=== PATIENT | male | born 1970 | race Caucasian/White ===

== ENCOUNTER 2022-02-14 20:21 | Inpatient (IN) | payer OTHER ==
[~2022-02-14] VITALS: Ht 175.3 cm; Wt 80.7 kg
--- NOTE | 2022-02-14 21:40 | NUR ---
ERIC C/O RIGHT LEG WOUND, CUT ON Friday WAS ADMITTED AT [facility] . PT A/OX4. TOLERATING R/A WELL WITH NO RESP DISRESS. SAFETY MEASURES IN PLACE.
[2022-02-14] MEDS ORDERED: VANCOMYCIN 1 GM in IV D5W 250 ML IV ONE (23:00)
[2022-02-14] MEDS ORDERED: VANCOMYCIN 1 GM VIAL ONE (23:10)
--- NOTE | 2022-02-14 23:11 | NUR ---
RAC #20G S/K BLOOD AND COVID ANTIGEN SWAB COLLECTED AND SENT TO LAB
--- NOTE | 2022-02-14 23:20 | NUR ---
JAIR SENT TO LAB
[2022-02-14 23:24] LABS: BASOPHILS % (AUTO) 0.1 % (0.0-2.0); EOSINOPHILS % (AUTO) 2.2 % (0.0-6.0); HEMATOCRIT 42 % (39-51); HEMOGLOBIN 14.1 g/dL (13.5-17.5); LYMPHOCYTES # (AUTO) 0.8 K/uL (0.8-4.8); LYMPHOCYTES % (AUTO) 9.7 % (20.0-44.0); MEAN CORPUSCULAR HGB CONC 33 g/dl (31.0-36.0); MEAN CORPUSCULAR VOLUME 88 fL (80-96); MONOCYTES # (AUTO) 0.7 K/uL (0.1-1.30); MONOCYTES % (AUTO) 9.2 % (2.0-12.0); NEUTROPHILS # (AUTO) 6.3 K/uL (1.8-8.9); NEUTROPHILS % (AUTO) 78.8 % (43.0-81.0); PLATELET COUNT (AUTO) 290 K/uL (150-450); RED BLOOD CELL COUNT(AUTO) 4.82 MIL/uL (4.5-6.0); WHITE BLOOD COUNT (AUTO) 7.9 K/uL (4.3-11.0)
[2022-02-14 23:34] LABS: CALCIUM, SERUM 8.8 mg/dL (8.5-10.1); POTASSIUM 3.6 mmol/L (3.5-5.1)
[2022-02-14 23:39] LABS: ALBUMIN 2.9 g/dL (3.4-5.0); BILIRUBIN,DIRECT 0.1 mg/dL (0.0-0.2); BILIRUBIN,TOTAL 0.5 mg/dL (0.2-1.0); TOTAL PROTEIN, SERUM 7.8 g/dL (6.4-8.2)
--- NOTE | 2022-02-15 02:43 | NUR ---
PT TAKEN TO CT VIA [facility]
[2022-02-15] MEDS ORDERED: Z GUARD REMEDY 4 OZ OINT TP PRN (03:00)
[2022-02-15] MEDS ORDERED: ACETAMINOPHEN 325 MG TABLET PO PRN (03:00)
[2022-02-15] MEDS ORDERED: MAGNESIUM HYDROXIDE 30 ML UDC PO PRN (03:00)
[2022-02-15] MEDS ORDERED: ONDANSETRON HCL/PF 4 MG/2 ML VIAL IVP PRN (03:00)
[2022-02-15] MEDS ORDERED: ZOLPIDEM TARTRATE 5 MG TABLET PO PRN (03:00)
[2022-02-15] MEDS ORDERED: MAG HYDROX/AL HYDROX/SIMETH 30 ML UDC PO PRN (03:00)
--- NOTE | 2022-02-15 03:00 | NUR ---
PT RETURNED TO ER BED [address]
--- NOTE | 2022-02-15 03:00 | NUR ---
room 327-1
--- NOTE | 2022-02-15 03:28 | NUR ---
REPORT GIVEN TO NADER He RN FOR TATY
[2022-02-15 04:00] VITALS: BP 112/68
--- NOTE | 2022-02-15 04:08 | NUR ---
PT TRANSFERRED TO [facility] VIA HOSPITAL PROTOCOL. ALL BELONGINGS WITH PT. VSS
--- NOTE | 2022-02-15 04:10 | NUR ---
MS CHIEF OF POLICE NOTE ADMITTED PATIENT FROM ER, BROUGHT BY NURSE COHEN VIA GURNEY WITH C/C RLE WOUND AND WITH INITIAL DX. OF FOREIGN BODY IN SOFT TISSUE AND CELLULITIS. ALERT AND ORIENTED X4. ABLE TO COMMUNICATE NEEDS WITH THE STAFFS. AFEBRILE AND NOT IN ANY FORM OF ACUTE DISTRESS. NO SOB/WHEEZING NOTED. NO C/O PAIN OR DISCOMFORT AT THIS TIME. LUNG SOUNDS CLEAR ON AUSCULTATION. BOWEL SOUND PRESENT IN ALL QUADRANTS. WITH IV ACCESS ON L ANTECUBITAL 20G SL. DIRECTED TO 327-1 AND TRANSFERRED TO BED. INITIAL SKIN ASSESSMENT DONE AND NOTED WITH 3 LACERATION ON RIGHT LOWER LEG (MEASURING 3CM X 1CM, 2CM X 0.5CM AND 2.5CM X 0.5CM). AREA CLEANSED AND COVERED WITH DRY DRESSING AND WOUND CONSULT WAS PLACED FOR FURTHER EVALUATION AND MANAGEMENT. ORIENTED TO ROOM. SAFETY MEASURES IN PLACE. KEPT BED IN LOCKED AND IN LOW POSITION TO REDUCE INJURY. SIDE RAILS UP X2. ADVISED TO USE THE CALL LIGHT WHEN IN NEED OF ASSISTANCE.
[2022-02-15 05:16] VITALS: BP 112/68
--- NOTE | 2022-02-15 06:52 | NUR ---
MS RN CLOSING NOTE PATIENT IN BED, WITH HOB ELEVATED, ALERT AND ORIENTED X4. ABLE TO MAKE NEEDS KNOWN. AFEBRILE AND NOT IN ANY FORM OF ACUTE DISTRESS. BREATHING EVEN AND NON LABORED. NO C/O PAIN OR DISCOMFORT AT THIS TIME. WITH IV ACCESS ON LEFT AC 20G SL. SAFETY MEASURES IN PLACE. KEPT BED IN LOCKED AND IN LOW POSITION TO REDUCE INJURY. SIDE RAILS UP X2. ADVISED TO USE THE CALL LIGHT WHEN IN NEED OF ASSISTANCE. ALL NURSING NEEDS ATTENDED.
--- NOTE | 2022-02-15 08:00 | NUR ---
MS RN OPENING NOTE PATIENT LAYING IN BED, A/O X 4, ABLE TO MAKE NEEDS KNOWN, TOLERATING WELL ON ROOM AIR WITH NO S/S RESPIRATORY DISTRESS. NO COMPLAINTS OF PAIN OR DISCOMFORT. L AC # 20 SL CLEAN, INTACT, AND FLUSHING WELL. SAFETY MEASURES IN PLACE: BED IN LOWEST LOCKED POSITION, SIDE RAILS UP X 2, CALL LIGHT WITHIN REACH. WILL CONTINUE TO MONITOR.
[2022-02-15 08:46] VITALS: BP 120/72
[2022-02-15] MEDS ORDERED: CLINDAMYCIN PHOSPHATE IV 600 MG/4 ML VIAL IV SCH (09:00)
--- NOTE | 2022-02-15 09:01 | NUR ---
WOUND CARE CONSULT: PT PRESENTS WITH RT LOWER LEG WOUNDS, PRESENT ON ADMISSION. DR MINAYA CALLED FOR DPM CONSULT. IN AGREEMENT WITH PLAN OF CARE.
[2022-02-15] MEDS ORDERED: VANCOMYCIN 1 GM in IV D5W 250 ML IV SCH (11:00)
[2022-02-15] MEDS: CLINDAMYCIN 300 MG in IV D5W 50 ML IV SCH ×2 (11:18→14:48)
[2022-02-15] MEDS ORDERED: LIDOCAINE 1%-EPI 1:200,000 SDV 10 ML VIAL IJ ONE (13:30)
[2022-02-15 15:51] VITALS: BP 123/71
[2022-02-15] MEDS ORDERED: VANCOMYCIN 1.25 GM in IV D5W 250 ML IV ONE (18:00)
--- NOTE | 2022-02-15 19:00 | NUR ---
MS RN CLOSING NOTE PATIENT LAYING IN BED, A/O X 4, ABLE TO MAKE NEEDS KNOWN, TOLERATING WELL ON ROOM AIR WITH NO S/S RESPIRATORY DISTRESS. NO COMPLAINTS OF PAIN OR DISCOMFORT. L AC # 20 SL CLEAN, INTACT, AND FLUSHING WELL. SAFETY MEASURES IN PLACE: BED IN LOWEST LOCKED POSITION, SIDE RAILS UP X 2, CALL LIGHT WITHIN REACH. ALL NEEDS MET. 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
[2022-02-15 19:14] LABS: CALCIUM, SERUM 8.4 mg/dL (8.5-10.1); CREATININE 0.9 mg/dL (0.6-1.3); POTASSIUM 3.5 mmol/L (3.5-5.1)
[2022-02-15 20:00] VITALS: BP 111/62
--- NOTE | 2022-02-15 20:06 | NUR ---
MS RN OPENING NOTE; RECEIVED PATIENT LAYING IN BED, A/O X 4, ABLE TO MAKE NEEDS KNOWN, TOLERATING WELL ON ROOM AIR WITH NO SIGN SOB/RESPIRATORY DISTRESS NOTED,NO COMPLAINTS OF PAIN OR DISCOMFORT AT THIS TIME,IV ACCESS ON L AC # 20 SL INTACT AND FLUSHING WELL. SAFETY MEASURES IN PLACE: BED IN LOWEST LOCKED POSITION, SIDE RAILS UP X 2, CALL LIGHT WITHIN REACH. WILL CONTINUE TO MONITOR.
[2022-02-15] MEDS: CEFEPIME 2 GM in IV D5W 100 ML IV SCH (20:17)
[2022-02-16] MEDS ORDERED: VANCOMYCIN 1 GM in IV D5W 250 ML IV SCH (06:00)
--- NOTE | 2022-02-16 06:39 | NUR ---
RN CLOSING NOTE; PT IN BED AAOX4 ABLE TO MAKE NEEDS KNOWN,DESTINY WELL ON RM AIR,NO SIGN SOB/DISTRESS NOTED,NO COMPLAINE OF PAIN/DISCOMFORT DURING SHIFT,DUE MEDS GIVEN ORDER,ALL NEEDS ATTENDED,IV ACCESS RAC 20G SL,PATENT AND INTACT.SAFETY MEASURE IN PLACE,CALL LIGHT WITHIN REACH,WILL ENDORSED TO NEXT SHIFT.
[2022-02-16 07:30] LABS: BASOPHILS % (AUTO) 0.3 % (0.0-2.0); HEMATOCRIT 43 % (39-51); HEMOGLOBIN 14.3 g/dL (13.5-17.5); LYMPHOCYTES # (AUTO) 0.8 K/uL (0.8-4.8); LYMPHOCYTES % (AUTO) 14.7 % (20.0-44.0); MEAN CORPUSCULAR HGB CONC 33 g/dl (31.0-36.0); MEAN CORPUSCULAR VOLUME 88 fL (80-96); MONOCYTES # (AUTO) 0.5 K/uL (0.1-1.30); NEUTROPHILS # (AUTO) 3.8 K/uL (1.8-8.9); PLATELET COUNT (AUTO) 307 K/uL (150-450); RED BLOOD CELL COUNT(AUTO) 4.89 MIL/uL (4.5-6.0); WHITE BLOOD COUNT (AUTO) 5.4 K/uL (4.3-11.0)
[2022-02-16 07:47] LABS: CALCIUM, SERUM 8.2 mg/dL (8.5-10.1); CREATININE 0.9 mg/dL (0.6-1.3); MAGNESIUM 2.4 mg/dL (1.8-2.4); PHOSPHORUS 3.6 mg/dL (2.5-4.9); POTASSIUM 4.1 mmol/L (3.5-5.1)
[2022-02-16 08:00] VITALS: BP 116/71
[2022-02-16] MEDS ORDERED: CLINDAMYCIN 300 MG in IV D5W 50 ML IV SCH (08:00)
--- NOTE | 2022-02-16 08:00 | NUR ---
MS RN OPENING NOTES PATIENT LAYING IN BED, A/O X 4, ABLE TO MAKE NEEDS KNOWN, TOLERATING WELL ON ROOM AIR WITH NO S/S RESPIRATORY DISTRESS. NO COMPLAINTS O F PAIN OR DISCOMFORT AT THIS TIME. R AC SL CLEAN, INTACT, AND FLUSHING WELL. SAFETY MEASURES IN PLACE: BED IN LOWEST LOCKED POSITION, SIDE RAILS UP X 2, CALL LIGHT WITHIN REACH. WILL CONTINUE TO MONITOR.
[2022-02-16] MEDS: CEFEPIME 2 GM in IV D5W 100 ML IV SCH (08:44)
[2022-02-16] MEDS ORDERED: CLIN300C12 PO (10:50)
--- NOTE | 2022-02-16 11:31 | NUR ---
MS RITA MATTHEWS NOTES PATIENT STATED DESIRE TO LEAVE HOSPITAL AGAINST MEDICAL ADVICE. MD MADE AWARE. MD AND RN SPOKE TO PATIENT REGARDING RISKS OF LEAVING HOSPITAL PRIOR TO MEDICAL CLEARANCE, PATIENT AGAIN STATED HIS DESIRE TO LEAVE [place]. PATIENT SIGNED AMA FORM AND WAS PROVIDED PRESCRIPTION AND DISCHARGE PAPERWORK PRIOR TO LEAVING. ID BAND AND IV LINE REMOVED. PATIENT REFUSED DISCHARGE VIA WHEELCHAIR AND AMBULATED OFF OF UNIT. WOUND CARE PROVIDED PRIOR TO PATIENT LEAVING. PATIENT STABLE AT TIME OF DISCHARGE. Addendum: 02/16/22 at 1714 by JADA STEINER RN INCIDENT REPORT FILED # [id number]
== END 2022-02-16 11:30 | disposition left against medical advice (07) | DRG 351 ==
LOC: ER 20:23 → MED 02-15 03:02
PROVIDERS: ADMIT Internal Medicine; ATTEND Internal Medicine
PROC: 0JBN3ZZ Excision of Right Lower Leg Subcutaneous Tissue and Fascia, Percutaneous Approach (ICD-10-PCS; principal; 2022-02-15)
DX: S81.821A Laceration with foreign body, right lower leg, initial encounter (principal); L03.115 Cellulitis of right lower limb; W25.XXXA Contact with sharp glass, initial encounter; W45.8XXA Other foreign body or object entering through skin, initial encounter; Y92.89 Other specified places as the place of occurrence of the external cause; Z20.822 Contact with and (suspected) exposure to COVID-19
CPT/HCPCS: 36415; 73700-TC; 80048-TC; 80076-TC; 83605-TC; 83735-TC; 84100-TC; 85025-TC; 85652-TC; 85730-TC; 87040-TC; A6253; A6403; A6407; C9803; G0378; J0692; J3370; J3490; J7040; J7060